=== PATIENT | male | born 1960 | race Two or more races ===

== ENCOUNTER 2017-02-05 23:55 | Emergency (ER) | payer MEDICAID ==
[~2017-02-05] VITALS: Ht 162.6 cm; Wt 107.9 kg
[2017-02-06] MEDS ORDERED: HYDROcodone/APAP 5/325 TABLET PO ONE (01:00)
[2017-02-06] MEDS ORDERED: DIAZEPAM 5 MG TABLET PO ONE (01:00)
[2017-02-06] MEDS ORDERED: KETOROLAC 30 MG/1 ML IM ONE (01:00)
[2017-02-06] MEDS ORDERED: HYDROcodone/APAP 5/325 TABLET ONE (01:34)
[2017-02-06] MEDS ORDERED: DIAZEPAM 5 MG TABLET ONE (01:34)
[2017-02-06] MEDS ORDERED: KETOROLAC 30 MG/1 ML ONE (01:34)
[2017-02-06 03:01] VITALS: BP 114/68
== END 2017-02-06 03:03 | disposition home or self-care (01) ==
LOC: ED 02-06 01:19
DX: M54.41 Lumbago with sciatica, right side (principal); I10 Essential (primary) hypertension; M79.604 Pain in right leg
CPT/HCPCS: 93971; 96372; 99284; J1885

== ENCOUNTER 2017-04-14 08:26 | Emergency (ER) | payer MEDICAID ==
[~2017-04-14] VITALS: Ht 167.6 cm; Wt 103.0 kg
[2017-04-14] MEDS ORDERED: KETOROLAC 30 MG/1 ML ONE (08:51)
[2017-04-14] MEDS ORDERED: KETOROLAC 30 MG/1 ML IM ONE (09:00)
[2017-04-14 11:07] VITALS: BP 112/76
== END 2017-04-14 11:09 | disposition home or self-care (01) ==
LOC: ED 10:38
DX: S87.82XA Crushing injury of left lower leg, initial encounter (principal); I10 Essential (primary) hypertension; M54.31 Sciatica, right side; W23.0XXA Caught, crushed, jammed, or pinched between moving objects, initial encounter; Y93.89 Activity, other specified; Y92.89 Other specified places as the place of occurrence of the external cause; Y99.8 Other external cause status
CPT/HCPCS: 72110; 93971; 96372; 99284; J1885

== ENCOUNTER 2017-10-05 12:49 | Emergency (ER) | payer MEDICAID ==
[~2017-10-05] VITALS: Ht 170.2 cm; Wt 104.9 kg
[2017-10-05 12:52] VITALS: BP 143/78
[2017-10-05] MEDS ORDERED: HYDROmorphone 1 MG/ML, 1ML IM ONE (13:30)
[2017-10-05] MEDS ORDERED: KETOROLAC 30 MG/1 ML IM ONE (13:30)
[2017-10-05] MEDS ORDERED: DIAZEPAM 5 MG TABLET PO ONE (13:30)
[2017-10-05] MEDS ORDERED: DIAZEPAM 5 MG TABLET ONE (13:32)
[2017-10-05] MEDS ORDERED: KETOROLAC 30 MG/1 ML ONE (13:32)
[2017-10-05] MEDS ORDERED: HYDROmorphone 1 MG/ML, 1ML ONE (13:34)
== END 2017-10-05 15:13 | disposition home or self-care (01) ==
LOC: ED 15:00
DX: S39.012A Strain of muscle, fascia and tendon of lower back, initial encounter (principal); I10 Essential (primary) hypertension; X58.XXXA Exposure to other specified factors, initial encounter; Y93.89 Activity, other specified; Y92.89 Other specified places as the place of occurrence of the external cause; Y99.8 Other external cause status
CPT/HCPCS: 72110; 73030; 96372; 99284; J1170; J1885

== ENCOUNTER 2018-01-03 15:07 | Emergency (ER) | payer MEDICAID ==
[~2018-01-03] VITALS: Ht 167.6 cm; Wt 95.0 kg
[2018-01-03 15:39] VITALS: BP 131/76
[2018-01-03] MEDS ORDERED: DIAZEPAM 5 MG TABLET PO ONE (17:00)
[2018-01-03] MEDS ORDERED: KETOROLAC 30 MG/1 ML IM ONE (17:00)
[2018-01-03] MEDS ORDERED: KETOROLAC 30 MG/1 ML ONE (17:12)
[2018-01-03] MEDS ORDERED: DIAZEPAM 5 MG TABLET ONE (17:12)
== END 2018-01-03 18:13 | disposition home or self-care (01) ==
LOC: ED 17:00
DX: M54.41 Lumbago with sciatica, right side (principal); I10 Essential (primary) hypertension; F17.200 Nicotine dependence, unspecified, uncomplicated
CPT/HCPCS: 96372; 99283; J1885

== ENCOUNTER 2019-08-21 09:34 | Inpatient (IN) | payer MEDICAID, OTHER ==
[~2019-08-21] VITALS: Ht 167.6 cm; Wt 120.3 kg
[2019-08-21 10:25] LABS: INTERNATIONAL NORMALIZED RATIO 1.36 (0.93-1.1); PROTHROMBIN TIME 14.5 Seconds (9.6-11.5)
[2019-08-21 10:26] LABS: ANION GAP 9 mmol/L (5-15); CALCIUM 7.7 mg/dL (8.5-10.1); CHLORIDE 113 mmol/L (98-107)
[2019-08-21 10:31] LABS: ALANINE AMINOTRANSFERASE 37 U/L (12-78); ALKALINE PHOSPHATASE 159 U/L (45-117); BILIRUBIN,TOTAL 4.4 mg/dL (0.2-1.0); CREATININE 0.71 mg/dL (0.7-1.3); TOTAL PROTEIN 6.6 g/dL (6.4-8.2)
[2019-08-21 10:35] LABS: BASOPHILS # (AUTO) 0.05 x10^3/uL (0-0.1); BASOPHILS % (AUTO) 1 % (0-1); EOSINOPHILS # (AUTO) 0.32 x10^3/uL (0-0.4); EOSINOPHILS % (AUTO) 7 % (1-7); LYMPHOCYTES # (AUTO) 1.03 x10^3/uL (1-3.4); LYMPHOCYTES % (AUTO) 22 % (22-44); MD MORPH REVIEW ONLY; MEAN CORPUSCULAR HEMOGLOBIN 35.4 pg (27.5-34.5); MEAN CORPUSCULAR HGB CONC 33.6 g/dL (33.2-36.2); MEAN CORPUSCULAR VOLUME 105.1 fL (81-97); MEAN PLATELET VOLUME 8.5 fL (7.4-10.4); MONOCYTES # (AUTO) 0.43 x10^3/uL (0.2-0.8); MONOCYTES % (AUTO) 9 % (2-9); NEUTROPHILS % (AUTO) 60 % (42-75); PLATELET COUNT 57 x10^3/uL (130-400); RED BLOOD COUNT 3.84 x10^6/uL (4.38-5.82)
[2019-08-21 10:37] LABS: ANISOCYTOSIS 1+
[2019-08-21 10:38] LABS: <PLATELET ESTIMATE> DECREASED; <PLT MORPHOLOGY> NORMAL PLT MORPH; OVALOCYTES 1+
--- NOTE | 2019-08-21 11:02 | NUR ---
PT UPRIGHT ON GURNEY AWAKE & CALM, RESPONDS APPROP TO STAFF, NAD, COMFORT MEASURE SPROVIDED, AT BS, CALL LIGHT WITHIN REACH.
[2019-08-21] MEDS ORDERED: CEFTRIAXONE PMX 1GM/50ML 50 ML IV ONE (12:00)
[2019-08-21] MEDS ORDERED: FUROSEMIDE 40 MG/4 ML IV ONE (12:00)
--- NOTE | 2019-08-21 12:00 | NUR ---
PT REMAINS UPRIGHT ON GURNEY AWAKE & CALM, RESPONDS APPROP TO STAFF, NAD, COMFORT MEASURE SPROVIDED, AT BS, CALL LIGHT WITHIN REACH.
[2019-08-21] MEDS ORDERED: FUROSEMIDE 40 MG/4 ML ONE (12:14)
[2019-08-21] MEDS ORDERED: CEFTRIAXONE PMX 1GM/50ML 50 ML ONE (12:14)
--- NOTE | 2019-08-21 12:58 | NUR ---
Pt to be admitted to [facility], room 405-2. Report called to
--- NOTE | 2019-08-21 13:00 | NUR ---
PT UPRIGHT ON GURNEY AWAKE & CALM, RESPONDS APPROP TO STAFF, NAD, COMFORT MEASURE SPROVIDED, AT BS, CALL LIGHT WITHIN REACH.
[2019-08-21 13:33] VITALS: BP 136/83
[2019-08-21] MEDS ORDERED: ONDANSETRON 2MG/ML, 2ML IVPush PRN (14:00)
[2019-08-21] MEDS ORDERED: LORazepam 1MG TABLET PO PRN ×4 (14:00)
[2019-08-21] MEDS ORDERED: LORazepam 2 MG/ML, 1ML IV PRN ×5 (14:00)
[2019-08-21] MEDS ORDERED: OXYcodone IR 5MG TABLET PO PRN (14:00)
[2019-08-21] MEDS ORDERED: ONDANSETRON ODT 4 MG PO PRN (14:00)
[2019-08-21] MEDS ORDERED: hydrALAzine 20 MG/ML, 1ML IVPush PRN (14:00)
[2019-08-21] MEDS ORDERED: POLYETHYLENE GLYCOL 17 GM PACKET PO PRN (14:00)
[2019-08-21] MEDS ORDERED: BISACODYL 10 MG SUPP PR PRN (14:00)
[2019-08-21] MEDS ORDERED: DOCUSATE 100 MG CAPSULE PO PRN (14:00)
[2019-08-21] MEDS ORDERED: PROMETHAZINE 25 MG/ML, 1ML IM PRN (14:00)
[2019-08-21 14:56] LABS: FREE T4 (FREE THYROXINE) 1.49 ng/dL (0.76-1.46)
[2019-08-21] MEDS: AMPICILLIN/SULBACTAM 3 GM in SODIUM CHLORIDE 0.9% 100 ML IV SCH ×2 (15:25→20:42)
[2019-08-21] MEDS ORDERED: OMNIPAQUE 350 MG/ML, 100ML BOTTLE ONE (17:10)
[2019-08-21 18:33] VITALS: BP 127/83
[2019-08-21] MEDS: LORazepam 0.5MG TABLET PO PRN (21:07)
[2019-08-22 01:11] VITALS: BP 104/67
[2019-08-22] MEDS: AMPICILLIN/SULBACTAM 3 GM in SODIUM CHLORIDE 0.9% 100 ML IV SCH ×4 (02:00→20:29)
[2019-08-22 04:18] LABS: MICROSCOPIC INDICATED
[2019-08-22 04:19] LABS: CULTURE INDICATED? YES
[2019-08-22 06:05] LABS: ALBUMIN 1.6 g/dL (3.4-5.0); ANION GAP 8 mmol/L (5-15); CALCIUM 7.4 mg/dL (8.5-10.1); CHLORIDE 113 mmol/L (98-107)
[2019-08-22 06:06] LABS: MEAN CORPUSCULAR HEMOGLOBIN 35.9 pg (27.5-34.5); MEAN CORPUSCULAR HGB CONC 33.9 g/dL (33.2-36.2); MEAN CORPUSCULAR VOLUME 105.8 fL (81-97); RED BLOOD COUNT 3.07 x10^6/uL (4.38-5.82); RED CELL DISTRIBUTION WIDTH 15.1 % (9.4-14.8)
[2019-08-22 06:09] LABS: ALANINE AMINOTRANSFERASE 30 U/L (12-78); ALKALINE PHOSPHATASE 107 U/L (45-117); BILIRUBIN,TOTAL 4.4 mg/dL (0.2-1.0); CHOL/HDL RATIO 6.1; CHOLESTEROL, TOTAL 103 mg/dL (140-239); CREATININE 0.79 mg/dL (0.7-1.3); HDL CHOL % 17 % (26-37); HDL CHOLESTEROL (DIRECT) 17 mg/dL (40-60); TOTAL PROTEIN 5.3 g/dL (6.4-8.2)
[2019-08-22 06:14] LABS: LDL CHOLESTEROL,CALCULATED 69 mg/dL (54-169); LDL/HDL RATIO 4.1 (0.5-3.0); TRIGLYCERIDES 87 mg/dL (50-200); VLDL CHOLESTEROL 17 mg/dL (0-25)
[2019-08-22 06:33] LABS: MEAN PLATELET VOLUME 8.6 fL (7.4-10.4); PLATELET COUNT 52 x10^3/uL (130-400)
[2019-08-22 06:34] LABS: BASOPHILS # (AUTO) 0.04 x10^3/uL (0-0.1); BASOPHILS % (AUTO) 1 % (0-1); EOSINOPHILS # (AUTO) 0.24 x10^3/uL (0-0.4); EOSINOPHILS % (AUTO) 7 % (1-7); LYMPHOCYTES # (AUTO) 0.83 x10^3/uL (1-3.4); LYMPHOCYTES % (AUTO) 25 % (22-44); MD SCAN; MONOCYTES % (AUTO) 12 % (2-9); NEUTROPHILS # (AUTO) 1.76 x10^3/uL (1.8-6.8); NEUTROPHILS % (AUTO) 54 % (42-75)
[2019-08-22 06:50] VITALS: BP 116/67
[2019-08-22] MEDS: SPIRONOLACTONE 50 MG TABLET PO SCH (08:55)
[2019-08-22] MEDS: FUROSEMIDE 40 MG TABLET PO SCH ×3 (08:56→20:30)
[2019-08-22] MEDS ORDERED: FUROSEMIDE 20 MG TABLET PO SCH (09:00)
[2019-08-22] MEDS ORDERED: FUROSEMIDE 40 MG TABLET PO SCH (09:00)
[2019-08-22] MEDS ORDERED: SPIRONOLACTONE 25 MG TABLET PO SCH (09:00)
[2019-08-22] MEDS: LORazepam 0.5MG TABLET PO PRN ×2 (09:22→20:30)
[2019-08-22 12:48] VITALS: BP 120/81
[2019-08-22 21:40] VITALS: BP 138/83
[2019-08-23 01:10] VITALS: BP 123/82
[2019-08-23] MEDS: AMPICILLIN/SULBACTAM 3 GM in SODIUM CHLORIDE 0.9% 100 ML IV SCH ×4 (01:56→20:35)
[2019-08-23 05:14] LABS: ALBUMIN 1.6 g/dL (3.4-5.0); ANION GAP 6 mmol/L (5-15); CALCIUM 7.4 mg/dL (8.5-10.1); CHLORIDE 110 mmol/L (98-107)
[2019-08-23 05:17] LABS: ALANINE AMINOTRANSFERASE 29 U/L (12-78); ALKALINE PHOSPHATASE 129 U/L (45-117); BILIRUBIN,TOTAL 4.1 mg/dL (0.2-1.0); CREATININE 0.69 mg/dL (0.7-1.3); TOTAL PROTEIN 5.4 g/dL (6.4-8.2)
[2019-08-23] MEDS ORDERED: ERGOCALCIFEROL 50,000 UNIT CAPSULE PO SCH (06:00)
[2019-08-23 06:09] LABS: MEAN CORPUSCULAR HEMOGLOBIN 35.9 pg (27.5-34.5); MEAN CORPUSCULAR HGB CONC 34.6 g/dL (33.2-36.2); MEAN CORPUSCULAR VOLUME 103.7 fL (81-97); MEAN PLATELET VOLUME 8.6 fL (7.4-10.4); RED BLOOD COUNT 3.03 x10^6/uL (4.38-5.82); RED CELL DISTRIBUTION WIDTH 14.9 % (9.4-14.8)
[2019-08-23 06:10] LABS: BASOPHILS # (AUTO) 0.04 x10^3/uL (0-0.1); BASOPHILS % (AUTO) 1 % (0-1); EOSINOPHILS # (AUTO) 0.27 x10^3/uL (0-0.4); EOSINOPHILS % (AUTO) 9 % (1-7); LYMPHOCYTES % (AUTO) 24 % (22-44); MD SCAN; MONOCYTES # (AUTO) 0.43 x10^3/uL (0.2-0.8); MONOCYTES % (AUTO) 14 % (2-9); NEUTROPHILS # (AUTO) 1.55 x10^3/uL (1.8-6.8); NEUTROPHILS % (AUTO) 52 % (42-75); PLATELET COUNT 38 x10^3/uL (130-400)
[2019-08-23 07:26] VITALS: BP 110/74
[2019-08-23] MEDS ORDERED: MAGNESIUM SULFATE PMX 2GM/50ML 50 ML IV ONE ×2 (09:00→17:00)
[2019-08-23] MEDS: FUROSEMIDE 40 MG TABLET PO SCH ×2 (09:21→20:35)
[2019-08-23] MEDS: SPIRONOLACTONE 50 MG TABLET PO SCH (09:21)
[2019-08-23 12:52] VITALS: BP 123/82
[2019-08-23 19:47] VITALS: BP 126/68
[2019-08-24] MEDS: AMPICILLIN/SULBACTAM 3 GM in SODIUM CHLORIDE 0.9% 100 ML IV SCH ×2 (02:56→08:09)
[2019-08-24 03:09] VITALS: BP 117/71
[2019-08-24 05:00] LABS: MEAN CORPUSCULAR HEMOGLOBIN 36.5 pg (27.5-34.5); MEAN CORPUSCULAR VOLUME 104.4 fL (81-97); MEAN PLATELET VOLUME 8.6 fL (7.4-10.4); RED BLOOD COUNT 3.08 x10^6/uL (4.38-5.82); RED CELL DISTRIBUTION WIDTH 14.8 % (9.4-14.8)
[2019-08-24 05:03] LABS: ALANINE AMINOTRANSFERASE 26 U/L (12-78); ALBUMIN 1.6 g/dL (3.4-5.0); ANION GAP 8 mmol/L (5-15); CALCIUM 7.4 mg/dL (8.5-10.1); CHLORIDE 109 mmol/L (98-107); CREATININE 0.71 mg/dL (0.7-1.3)
[2019-08-24 05:05] LABS: ALKALINE PHOSPHATASE 128 U/L (45-117); BILIRUBIN,TOTAL 4.1 mg/dL (0.2-1.0); TOTAL PROTEIN 5.4 g/dL (6.4-8.2)
[2019-08-24 05:27] LABS: PLATELET COUNT 39 x10^3/uL (130-400)
[2019-08-24 06:12] LABS: BASOPHILS # (AUTO) 0.04 x10^3/uL (0-0.1); BASOPHILS % (AUTO) 2 % (0-1); EOSINOPHILS # (AUTO) 0.29 x10^3/uL (0-0.4); EOSINOPHILS % (AUTO) 10 % (1-7); LYMPHOCYTES # (AUTO) 0.76 x10^3/uL (1-3.4); LYMPHOCYTES % (AUTO) 25 % (22-44); MD SCAN; MONOCYTES # (AUTO) 0.34 x10^3/uL (0.2-0.8); MONOCYTES % (AUTO) 12 % (2-9); NEUTROPHILS # (AUTO) 1.54 x10^3/uL (1.8-6.8); NEUTROPHILS % (AUTO) 52 % (42-75)
[2019-08-24 07:51] VITALS: BP 93/63
[2019-08-24] MEDS ORDERED: MAGNESIUM SULFATE PMX 4GM/100M 100 ML IV ONE (08:00)
[2019-08-24] MEDS ORDERED: POTASSIUM PHOSPHATE 22 MEQ in SODIUM CHLORIDE 0.9% 500 ML IV ONE (08:00)
[2019-08-24] MEDS: FUROSEMIDE 40 MG TABLET PO SCH (08:09)
[2019-08-24] MEDS: SPIRONOLACTONE 50 MG TABLET PO SCH (08:09)
[2019-08-24] MEDS ORDERED: MAGN400T26 PO (11:04)
[2019-08-24] MEDS ORDERED: THIA100T67 PO (11:04)
[2019-08-24] MEDS ORDERED: POTA20PA25 PO (11:04)
[2019-08-24] MEDS ORDERED: SULF1TAB24 PO (11:04)
[2019-08-24] MEDS ORDERED: FOLI-17 PO (11:04)
[2019-08-24] MEDS ORDERED: ERGO500017 PO (11:04)
[2019-08-24] MEDS ORDERED: FURO40TA6 PO (11:04)
[2019-08-24] MEDS ORDERED: AMOX1TAB61 PO (11:04)
[2019-08-24] MEDS ORDERED: SPIR50TA PO (11:04)
== END 2019-08-24 13:58 | disposition home or self-care (01) | DRG 433 ==
LOC: ED 11:46 → EDIP 12:20 → 4WST 13:22 → DCLOUNGE 08-24 13:51
PROVIDERS: ADMIT Internal Medicine; ATTEND Internal Medicine
DX: K70.31 Alcoholic cirrhosis of liver with ascites (principal); E87.2 Acidosis; D68.9 Coagulation defect, unspecified; L03.311 Cellulitis of abdominal wall; F10.10 Alcohol abuse, uncomplicated; F17.200 Nicotine dependence, unspecified, uncomplicated; E83.42 Hypomagnesemia; E88.09 Other disorders of plasma-protein metabolism, not elsewhere classified; R60.1 Generalized edema
CPT/HCPCS: 36415; 71045; 74177; 76700; 80053; 80061; 81001; 82306; 82607; 83036; 83605; 83690; 83735; 83880; 84100; 84145; 84439; 84443; 85025; 85610; 86704; 86705; 86706; 86708; 86709; 86803; 87040; 87086; 87340; 93005; 93306; 96365; 96375; 99291; G0378; J0295; J0696; J1940; Q9967; J3475; J7040

== ENCOUNTER 2020-04-08 18:32 | Inpatient (IN) | payer MEDICAID ==
[~2020-04-08] VITALS: Ht 175.3 cm; Wt 98.7 kg
[~2020-04-08 18:32] MED LIST: AMOX1TAB61 PO; ERGO500017 PO; ETOMIDATE 20 MG/10 ML ONE; FOLI-17 PO; FURO40TA6 PO; MAGN400T26 PO; POTA20PA25 PO; PROPOFOL 10 MG/ML, 100ML IV ONE; SPIR50TA PO; SUCCINYLCHOLINE 20 MG/ML, 10ML ONE; SULF1TAB24 PO; THIA100T67 PO
[2020-04-08] MEDS ORDERED: LORazepam 2 MG/ML, 1ML ONE (18:35)
--- NOTE | 2020-04-08 18:42 | NUR ---
PT MEDICATED WITH 100 SUCC'S AND 20 ETOMIDATE FOR INTUBATION FROM RSI KIT AT 1842.
[2020-04-08] MEDS ORDERED: SODIUM CHLORIDE FLUSH 10ML SYR IVF ONE (19:00)
--- NOTE | 2020-04-08 19:03 | NUR ---
BIB [facility] FROM HOME FOUND UNRESPONSIVE BY FAMILY. [facility] PLACED NASAL TRUMPET AND GAVE 4 MG NARCAN WITHOUT REPSONSE. PT WITH LABORED BREATHING, COURSE LUNG SOUNDS THROUGHOUT. JAUNDICE. UNRESPONSIVE TO PAINFUL STIMULI. PT INTUBATED WITH 8.0 ETT, 23 AT LIPS. [address], LABS DRAWN, OG PLACED, BLOOD CULTURES DRAWN, CXR AT BEDSIDE. CENTRAL LINE CART IN ROOM. REPORT GIVEN TO FIDEL ALMARAZ.
[2020-04-08] MEDS ORDERED: PROPOFOL 100 ML IV PRN ×2 (19:12→22:36)
--- NOTE | 2020-04-08 19:19 | NUR ---
REPORT FROM [facility] ASSUMED CARE OF PT AT THIS TIME, PT INTUBATED, NO RESPONSE TO ANY STIMULI SEDATION NOT NECESSARY AT THIS TIME VSS
[2020-04-08 19:26] LABS: INTERNATIONAL NORMALIZED RATIO 2.05 (0.93-1.1); PROTHROMBIN TIME 21.3 Seconds (9.6-11.5)
[2020-04-08] MEDS ORDERED: SUCCINYLCHOLINE 20 MG/ML, 10ML IVPush ONE (19:30)
[2020-04-08] MEDS ORDERED: ETOMIDATE 20 MG/10 ML IV ONE (19:30)
[2020-04-08 19:38] LABS: ALANINE AMINOTRANSFERASE 51 U/L (12-78); ALBUMIN 1.5 g/dL (3.4-5.0); ANION GAP 17 mmol/L (5-15); CALCIUM 7.9 mg/dL (8.5-10.1); CHLORIDE 111 mmol/L (98-107)
[2020-04-08 19:41] LABS: MICROSCOPIC INDICATED
[2020-04-08 19:42] LABS: MEAN CORPUSCULAR HEMOGLOBIN 38.6 pg (27.5-34.5); MEAN CORPUSCULAR HGB CONC 34.2 g/dL (33.2-36.2); MEAN PLATELET VOLUME 8.2 fL (7.4-10.4); PLATELET COUNT 100 x10^3/uL (130-400); RED BLOOD COUNT 3.07 x10^6/uL (4.38-5.82); RED CELL DISTRIBUTION WIDTH 17.4 % (9.4-14.8)
[2020-04-08 19:43] LABS: MD YES
[2020-04-08 19:44] LABS: ALKALINE PHOSPHATASE 110 U/L (45-117); TROPONIN I < 0.015 ng/mL (0.000-0.045)
[2020-04-08 19:47] LABS: AMPHETAMINE SCREEN, URINE Negative (Negative); BARBITURATE SCREEN, URINE Negative (Negative); BENZODIAZEPINE SCREEN, URINE Negative (Negative); CANNABINOID SCREEN, URINE Negative (Negative); COCAINE SCREEN, URINE Negative (Negative); METHADONE SCREEN, URINE Negative (Negative); OPIATE SCREEN, URINE Negative (Negative)
[2020-04-08 19:56] LABS: BAND#(MANUAL) 0.68 x10^3/uL; BANDS%(MANUAL) 11 % (0-7); EOS#(MANUAL) 0.06 x10^3/uL (0.0-0.4); EOS% (MANUAL) 1 % (1-7); LYMPH#(MANUAL) 0.37 x10^3/uL (1-3.4); LYMPHS% (MANUAL) 6 % (22-44); MONOS#(MANUAL) 0.37 x10^3/uL (0.3-2.7); MONOS% (MANUAL) 6 % (2-9); SEG#(MANUAL) 4.71 x10^3/uL (1.8-6.8); SEGS% (MANUAL) 76 % (42-75)
[2020-04-08 19:58] LABS: <PLATELET ESTIMATE> DECREASED; <PLT MORPHOLOGY> NORMAL PLT MORPH; OVALOCYTES 1+; POLYCHROMASIA 1+; TEAR DROPS 1+
--- NOTE | 2020-04-08 20:00 | NUR ---
PT BACK FROM CT AT THIS TIME
--- NOTE | 2020-04-08 20:16 | NUR ---
PT IN NAD PLACED ON ALL MONITORS
[2020-04-08 20:26] LABS: CREATININE 5.47 mg/dL (0.7-1.3); TOTAL PROTEIN 5.9 g/dL (6.4-8.2)
[2020-04-08 20:28] LABS: BILIRUBIN,TOTAL 26.5 mg/dL (0.2-1.0)
[2020-04-08 20:29] LABS: SALICYLATE LEVEL < 1.7 mg/dL (2.8-20.0)
--- NOTE | 2020-04-08 20:35 | NUR ---
DR EVERETT AT BEDSIDE PLACING CENTRAL LINE AT THIS TIME
[2020-04-08] MEDS ORDERED: CEFTRIAXONE PMX 1GM/50ML 50 ML IV ONE (21:00)
[2020-04-08] MEDS ORDERED: SODIUM CHLORIDE 0.9% 1,000ML IVBOLUS ONE ×2 (21:00→23:00)
[2020-04-08] MEDS ORDERED: CEFTRIAXONE PMX 1GM/50ML 50 ML ONE (21:00)
--- NOTE | 2020-04-08 21:06 | NUR ---
SPOKE WITH DR EVERETT RE SEPSIS, NEW ORDERS GIVEN
--- NOTE | 2020-04-08 21:22 | NUR ---
RT DECREACED FIO2 TO 30% PER ABG RESULTS
[2020-04-08] MEDS ORDERED: SODIUM CHLORIDE FLUSH 10ML SYR IVF PRN (22:00)
--- NOTE | 2020-04-08 22:24 | NUR ---
DR MCCLELLAN AT BED SIDE FOR ADMIT TO ICU, PT GF AT BED SIDE ALSO POC DISCUSSED
[2020-04-08] MEDS ORDERED: morphine SULFATE 10 MG/ML, 1ML IVPush PRN (22:30)
[2020-04-08] MEDS ORDERED: ONDANSETRON ODT 4 MG PO PRN (22:30)
[2020-04-08] MEDS ORDERED: ONDANSETRON 2MG/ML, 2ML IVPush PRN (22:30)
[2020-04-08] MEDS ORDERED: OXYcodone IR 5MG TABLET PO PRN (22:30)
[2020-04-08] MEDS ORDERED: hydrALAzine 20 MG/ML, 1ML IVPush PRN (22:30)
[2020-04-08] MEDS ORDERED: D5%-0.9% NACL 1,000 ML IV SCH (22:30)
[2020-04-08] MEDS ORDERED: PROMETHAZINE 25 MG/ML, 1ML IM PRN (22:30)
--- NOTE | 2020-04-08 22:47 | NUR ---
REPORT TO KB, PT TO ICU WITH TECH AND RT AND THIS RN
[2020-04-08 23:00] LABS: FREE T4 (FREE THYROXINE) 0.95 ng/dL (0.76-1.46)
[2020-04-08] MEDS ORDERED: LACTULOSE 3.3 GM/5 ML ORAL.SOL RC ONE (23:00)
[2020-04-08] MEDS ORDERED: SENNA 176 MG/5 ML ORAL SOL NG PRN (23:00)
[2020-04-08] MEDS ORDERED: DEXTROSE 4 GM TAB.CHEW PO PRN (23:00)
[2020-04-08] MEDS ORDERED: AMPICILLIN/SULBACTAM 1,500 MG in SODIUM CHLORIDE 0.9% 50 ML IV SCH (23:00)
[2020-04-08] MEDS ORDERED: BISACODYL 10 MG SUPP PR PRN (23:00)
[2020-04-08] MEDS ORDERED: GLUCAGON 1 MG IM PRN (23:00)
[2020-04-08] MEDS ORDERED: LACTULOSE 20 GM/30 ML UDC NG PRN (23:00)
[2020-04-08] MEDS ORDERED: DEXTROSE 50%, 50ML SYRINGE IVPush PRN (23:00)
[2020-04-08] MEDS ORDERED: PHARMACY MAY ADJ FOR RENAL FX MC SCH (23:00)
[2020-04-08] MEDS ORDERED: ALBUMIN HUMAN 25% 100 ML IV SCH (23:00)
[2020-04-08] MEDS ORDERED: SENNA/DOCUSATE TABLET NG PRN (23:00)
[2020-04-08] MEDS ORDERED: LIDOCAINE-MPF 1%, 2ML ENDO PRN (23:00)
[2020-04-08] MEDS ORDERED: MIDAZOLAM 1 MG/ML, 2ML IVPush PRN (23:00)
[2020-04-08] MEDS: NOREPINEPHRINE 8 MG in SODIUM CHLORIDE 0.9% 242 ML IV PRN (23:19)
[2020-04-08] MEDS: SODIUM CHLORIDE FLUSH 10ML SYR IVF SCH (23:23)
[2020-04-08 23:46] LABS: TROPONIN I 0.021 ng/mL (0.000-0.045)
[2020-04-08 23:53] LABS: TRIGLYCERIDES 142 mg/dL (50-200)
[2020-04-09 00:22] VITALS: BP 97/61
[2020-04-09] MEDS: AMPICILLIN/SULBACTAM 3 GM in SODIUM CHLORIDE 0.9% 100 ML IV SCH ×3 (00:24→22:56)
[2020-04-09 01:10] LABS: CHLORIDE,URINE RANDOM 34 mmol/L; POTASSIUM,URINE RANDOM 65 mmol/L; SODIUM,URINE RANDOM 27 mmol/L
[2020-04-09 03:02] VITALS: BP 93/49
[2020-04-09 04:22] LABS: INTERNATIONAL NORMALIZED RATIO 2.28 (0.93-1.1); PROTHROMBIN TIME 23.7 Seconds (9.6-11.5)
[2020-04-09 04:23] LABS: ALBUMIN 1.7 g/dL (3.4-5.0); ANION GAP 20 mmol/L (5-15); CALCIUM 7.2 mg/dL (8.5-10.1); CHLORIDE 117 mmol/L (98-107)
[2020-04-09 04:26] LABS: ALANINE AMINOTRANSFERASE 42 U/L (12-78); ALKALINE PHOSPHATASE 82 U/L (45-117); TROPONIN I 0.099 ng/mL (0.000-0.045)
[2020-04-09 04:34] LABS: HDL CHOLESTEROL (DIRECT) 15 mg/dL (40-60); MEAN CORPUSCULAR HEMOGLOBIN 39.1 pg (27.5-34.5); RED BLOOD COUNT 2.55 x10^6/uL (4.38-5.82); RED CELL DISTRIBUTION WIDTH 17.2 % (9.4-14.8)
[2020-04-09 04:35] LABS: CHOL/HDL RATIO 3.3; CHOLESTEROL, TOTAL < 50 mg/dL (140-239); CREATININE 5.55 mg/dL (0.7-1.3); HDL CHOL % 0 % (26-37); LDL CHOLESTEROL,CALCULATED 6 mg/dL (54-169); LDL/HDL RATIO 0.4 (0.5-3.0); TOTAL PROTEIN 5.3 g/dL (6.4-8.2); TRIGLYCERIDES 143 mg/dL (50-200); VLDL CHOLESTEROL 29 mg/dL (0-25)
[2020-04-09 04:38] LABS: BILIRUBIN,TOTAL 28.4 mg/dL (0.2-1.0)
[2020-04-09] MEDS ORDERED: SODIUM BICARB 8.4%, 50ML SYRINGE IVPush ONE (05:30)
[2020-04-09] MEDS: SODIUM BICARBONATE 8.4% 100 MEQ in DEXTROSE 5% 1,000 ML IV SCH ×2 (05:35→15:56)
[2020-04-09 05:44] LABS: MD YES; MEAN PLATELET VOLUME 8.2 fL (7.4-10.4); PLATELET COUNT 51 x10^3/uL (130-400)
[2020-04-09 05:46] LABS: BAND#(MANUAL) 1.22 x10^3/uL; BANDS%(MANUAL) 9 % (0-7); EOS#(MANUAL) 0.27 x10^3/uL (0.0-0.4); EOS% (MANUAL) 2 % (1-7); LYMPH#(MANUAL) 0.54 x10^3/uL (1-3.4); LYMPHS% (MANUAL) 4 % (22-44); METAMYELOCYTES# (MANUAL) 0.14 x10^3/uL (0-0); METAMYELOCYTES% (MANUAL) 1 % (0-1); MONOS#(MANUAL) 0.54 x10^3/uL (0.3-2.7); MONOS% (MANUAL) 4 % (2-9); SEGS% (MANUAL) 80 % (42-75)
[2020-04-09 05:47] LABS: ANISOCYTOSIS 1+; POLYCHROMASIA 1+; TOXIC GRAN 1+
[2020-04-09 05:48] LABS: <PLATELET ESTIMATE> DECREASED; <PLT MORPHOLOGY> NORMAL PLT MORPH; OVALOCYTES 1+
[2020-04-09] MEDS ORDERED: PANTOPRAZOLE 40 MG IV IVPush SCH (07:30)
[2020-04-09] MEDS ORDERED: ALBUMIN HUMAN 25% 100 ML IV SCH (08:00)
[2020-04-09] MEDS: ALBUMIN HUMAN 25% 100 ML IV SCH ×2 (09:07→17:14)
[2020-04-09] MEDS: LACTULOSE 20 GM/30 ML UDC PO SCH ×2 (09:07→20:37)
[2020-04-09] MEDS: PANTOPRAZOLE 40 MG IV IVPush SCH (09:07)
[2020-04-09] MEDS: SODIUM CHLORIDE FLUSH 10ML SYR IVF SCH ×2 (09:15→20:37)
[2020-04-09] MEDS ORDERED: CEFTRIAXONE PMX 1GM/50ML 50 ML IV ONE (10:00)
[2020-04-09 11:27] LABS: CHLORIDE,URINE RANDOM 66 mmol/L; POTASSIUM,URINE RANDOM 50 mmol/L; SODIUM,URINE RANDOM 54 mmol/L
[2020-04-09] MEDS: PHYTONADIONE 5 MG TABLET PO SCH (12:46)
[2020-04-09] MEDS ORDERED: VANCOMYCIN PER PHARMACY MC PRN (15:00)
[2020-04-09] MEDS ORDERED: VANCOMYCIN 2,000 MG in SODIUM CHLORIDE 0.9% 500 ML IV ONE (15:30)
[2020-04-09] MEDS ORDERED: PHARMACOKINETIC MONITORING MC PRN (15:30)
[2020-04-09] MEDS: NOREPINEPHRINE 8 MG in SODIUM CHLORIDE 0.9% 242 ML IV PRN (17:23)
[2020-04-09] MEDS ORDERED: D5%-0.45% NACL 1,000 ML IV SCH (22:30)
[2020-04-10] MEDS: NOREPINEPHRINE 8 MG in SODIUM CHLORIDE 0.9% 242 ML IV PRN ×4 (00:14→17:44)
[2020-04-10 04:00] VITALS: BP 102/52
[2020-04-10 04:21] LABS: MEAN CORPUSCULAR HGB CONC 34.2 g/dL (33.2-36.2); MEAN PLATELET VOLUME 7.7 fL (7.4-10.4); PLATELET COUNT 59 x10^3/uL (130-400); RED BLOOD COUNT 2.38 x10^6/uL (4.38-5.82); RED CELL DISTRIBUTION WIDTH 16.9 % (9.4-14.8)
[2020-04-10 04:28] LABS: INTERNATIONAL NORMALIZED RATIO 2.71 (0.93-1.1); PROTHROMBIN TIME 28.2 Seconds (9.6-11.5)
[2020-04-10 04:39] LABS: MD YES
[2020-04-10 04:42] LABS: BAND#(MANUAL) 0.15 x10^3/uL; BANDS%(MANUAL) 1 % (0-7); LYMPH#(MANUAL) 0.44 x10^3/uL (1-3.4); LYMPHS% (MANUAL) 3 % (22-44); METAMYELOCYTES# (MANUAL) 0.29 x10^3/uL (0-0); METAMYELOCYTES% (MANUAL) 2 % (0-1); MONOS#(MANUAL) 0.73 x10^3/uL (0.3-2.7); MONOS% (MANUAL) 5 % (2-9); SEG#(MANUAL) 12.91 x10^3/uL (1.8-6.8); SEGS% (MANUAL) 89 % (42-75)
[2020-04-10 04:43] LABS: <PLATELET ESTIMATE> DECREASED; <PLT MORPHOLOGY> NORMAL PLT MORPH; ANISOCYTOSIS 1+; OVALOCYTES 1+; POLYCHROMASIA 1+; TOXIC GRAN 1+
[2020-04-10] MEDS: SODIUM BICARBONATE 8.4% 100 MEQ in DEXTROSE 5% 1,000 ML IV SCH (05:50)
[2020-04-10 07:52] LABS: ALANINE AMINOTRANSFERASE 38 U/L (12-78); ALBUMIN 2.1 g/dL (3.4-5.0); ANION GAP 12 mmol/L (5-15); CALCIUM 7.7 mg/dL (8.5-10.1); CHLORIDE 105 mmol/L (98-107)
[2020-04-10 08:03] LABS: ALKALINE PHOSPHATASE 67 U/L (45-117)
[2020-04-10 08:17] LABS: TOTAL PROTEIN 5.1 g/dL (6.4-8.2)
[2020-04-10 08:19] LABS: BILIRUBIN,TOTAL 31.4 mg/dL (0.2-1.0)
[2020-04-10] MEDS ORDERED: POTASSIUM CHLORIDE 40 MEQ in SODIUM CHLORIDE 0.9% 100 ML IV ONE (09:00)
[2020-04-10] MEDS: PHYTONADIONE 5 MG TABLET PO SCH (09:32)
[2020-04-10] MEDS: PANTOPRAZOLE 40 MG IV IVPush SCH (09:32)
[2020-04-10] MEDS: SODIUM CHLORIDE FLUSH 10ML SYR IVF SCH ×2 (09:33→21:03)
[2020-04-10] MEDS: LACTULOSE 20 GM/30 ML UDC PO SCH ×2 (09:33→21:03)
[2020-04-10] MEDS: AMPICILLIN/SULBACTAM 3 GM in SODIUM CHLORIDE 0.9% 100 ML IV SCH ×2 (11:16→23:42)
[2020-04-11] MEDS: NOREPINEPHRINE 8 MG in SODIUM CHLORIDE 0.9% 242 ML IV PRN ×2 (01:09→09:11)
[2020-04-11 04:00] VITALS: BP 105/57
[2020-04-11 05:41] LABS: ALANINE AMINOTRANSFERASE 47 U/L (12-78); ALBUMIN 1.9 g/dL (3.4-5.0); ANION GAP 10 mmol/L (5-15); CALCIUM 7.7 mg/dL (8.5-10.1); CHLORIDE 109 mmol/L (98-107)
[2020-04-11 05:46] LABS: CREATININE 3.85 mg/dL (0.7-1.3)
[2020-04-11 05:53] LABS: ALKALINE PHOSPHATASE 66 U/L (45-117)
[2020-04-11 05:54] LABS: VANCOMYCIN,RANDOM 10.6 mcg/mL
[2020-04-11 05:56] LABS: TOTAL PROTEIN 4.9 g/dL (6.4-8.2)
[2020-04-11 05:58] LABS: BILIRUBIN,TOTAL 34.3 mg/dL (0.2-1.0)
[2020-04-11 06:11] LABS: MD YES; MEAN CORPUSCULAR HEMOGLOBIN 39.9 pg (27.5-34.5); MEAN CORPUSCULAR HGB CONC 34.6 g/dL (33.2-36.2); MEAN PLATELET VOLUME 8.1 fL (7.4-10.4); PLATELET COUNT 65 x10^3/uL (130-400); RED CELL DISTRIBUTION WIDTH 17.3 % (9.4-14.8)
[2020-04-11 06:12] LABS: EOS#(MANUAL) 0.15 x10^3/uL (0.0-0.4); EOS% (MANUAL) 1 % (1-7)
[2020-04-11 06:13] LABS: ANISOCYTOSIS 1+; LYMPH#(MANUAL) 0.45 x10^3/uL (1-3.4); LYMPHS% (MANUAL) 3 % (22-44); MONOS#(MANUAL) 0.75 x10^3/uL (0.3-2.7); MONOS% (MANUAL) 5 % (2-9); POLYCHROMASIA 1+; SEG#(MANUAL) 13.56 x10^3/uL (1.8-6.8); SEGS% (MANUAL) 91 % (42-75)
[2020-04-11 06:14] LABS: <PLATELET ESTIMATE> DECREASED; <PLT MORPHOLOGY> NORMAL PLT MORPH; OVALOCYTES 1+; TOXIC GRAN 1+
[2020-04-11] MEDS: PHYTONADIONE 5 MG TABLET PO SCH (09:17)
[2020-04-11] MEDS: PANTOPRAZOLE 40 MG IV IVPush SCH (09:17)
[2020-04-11] MEDS: LACTULOSE 20 GM/30 ML UDC PO SCH (09:17)
[2020-04-11] MEDS: SODIUM CHLORIDE FLUSH 10ML SYR IVF SCH (09:18)
[2020-04-11] MEDS ORDERED: FUROSEMIDE 40 MG/4 ML IV ONE (10:00)
[2020-04-11] MEDS ORDERED: MIDAZOLAM HCL 50 MG in SODIUM CHLORIDE 0.9% 40 ML IV PRN (10:00)
[2020-04-11] MEDS ORDERED: POTASSIUM CHLORIDE 40 MEQ in SODIUM CHLORIDE 0.9% 100 ML IV ONE (10:00)
[2020-04-11] MEDS: AMPICILLIN/SULBACTAM 3 GM in SODIUM CHLORIDE 0.9% 100 ML IV SCH (10:26)
[2020-04-11] MEDS ORDERED: VANCOMYCIN 2,000 MG in SODIUM CHLORIDE 0.9% 500 ML IV ONE (10:30)
[2020-04-11] MEDS ORDERED: SCOPOLAMINE 1MG PATCH TD PRN (15:30)
[2020-04-11] MEDS ORDERED: morphine SULFATE 10 MG/ML, 1ML IVPush PRN (15:30)
[2020-04-11] MEDS ORDERED: LORazepam 2 MG/ML, 1ML IV ONE (15:30)
[2020-04-11] MEDS ORDERED: MORPHINE SULFATE 4 MG/ML, 1ML IV ONE (15:30)
[2020-04-11] MEDS ORDERED: LORazepam 2 MG/ML, 1ML IVPush PRN (15:30)
[2020-04-11] MEDS ORDERED: ONDANSETRON 2MG/ML, 2ML IVPush PRN (15:30)
== END 2020-04-12 02:36 | disposition expired | DRG 208 ==
LOC: ED 22:58 → CCU 22:59 → 4NW 04-11 22:40
PROVIDERS: ADMIT Internal Medicine; ATTEND Hospitalist
PROC: 5A1945Z Respiratory Ventilation, 24-96 Consecutive Hours (ICD-10-PCS; principal; 2020-04-08)
PROC: 0BH17EZ Insertion of Endotracheal Airway into Trachea, Via Natural or Artificial Opening (ICD-10-PCS; 2020-04-08)
PROC: 0T9B70Z Drainage of Bladder with Drainage Device, Via Natural or Artificial Opening (ICD-10-PCS; 2020-04-08)
PROC: 02HV33Z Insertion of Infusion Device into Superior Vena Cava, Percutaneous Approach (ICD-10-PCS; 2020-04-09)
PROC: B548ZZA Ultrasonography of Superior Vena Cava, Guidance (ICD-10-PCS; 2020-04-09)
DX: J96.00 Acute respiratory failure, unspecified whether with hypoxia or hypercapnia (principal); G93.41 Metabolic encephalopathy; J15.20 Pneumonia due to staphylococcus, unspecified; J69.0 Pneumonitis due to inhalation of food and vomit; D68.9 Coagulation defect, unspecified; E87.2 Acidosis; J93.9 Pneumothorax, unspecified; J98.11 Atelectasis; N17.9 Acute kidney failure, unspecified; R57.9 Shock, unspecified; R78.81 Bacteremia; B95.5 Unspecified streptococcus as the cause of diseases classified elsewhere; K70.31 Alcoholic cirrhosis of liver with ascites; K70.40 Alcoholic hepatic failure without coma; B95.8 Unspecified staphylococcus as the cause of diseases classified elsewhere; D64.9 Anemia, unspecified; D69.59 Other secondary thrombocytopenia; E88.09 Other disorders of plasma-protein metabolism, not elsewhere classified; I10 Essential (primary) hypertension
CPT/HCPCS: 31500; 36415; 36556; 36600; 70450; 71045; 76705; 76770; 76937; 77001; 80053; 80061; 80202; 80307; 81001; 82140; 82150; 82436; 82533; 82803; 82962; 83036; 83605; 83690; 83735; 84100; 84133; 84300; 84439; 84443; 84478; 84484; 85025; 85610; 85730; 86704; 86705; 86706; 86900; 87040; 87070; 87077; 87081; 87086; 87147; 87181; 87186; 87205; 87340; 90935; 93005; 94002; 94003; 96361; 96365; 96375; C1894; G0378; J0295; J0696; J1940; J2250; J2704; J3370; J3480; J7070; P9047; C1751; C9113; J0330; J1642; J2060; J2270; J7030; J7040; J7050; J7512